=== PATIENT | female | born 1970 | race Caucasian/White ===

== ENCOUNTER 2025-07-21 11:44 | Emergency (ER) | payer MEDICAID ==
[~2025-07-21] VITALS: Ht 165.1 cm; Wt 94.0 kg
[2025-07-21 12:33] LABS: BLOOD/HGB, URINE NEGATIVE (Negative); KETONE, URINE NEGATIVE (Negative); LEUK ESTERASE, URINE TRACE (negative); NITRITE, URINE NEGATIVE (negative)
[2025-07-21 12:43] LABS: BASOPHILS 1.0 % (0.1-1.2); EOSINOPHILS 1.2 % (0.7-5.8); LYMPHOCYTES 33.8 % (19.3-51.7); MCH 29.8 PG (25.6-32.2); MCHC 34.1 g/dL (32.2-35.5); MCV 87.4 fL (79.4-94.8); MONOCYTES 4.6 % (4.7-12.5); NEUTROPHILS 59.2 % (34.0-71.1); RBC 5.16 M/uL (3.93-5.22)
[2025-07-21 12:44] LABS: BACTERIA, URINE NONE SEEN /hpf (negative); CASTS, URINE NONE SEEN \\lpf; CRYSTALS, URINE NONE SEEN (0-1+); EPITHELIAL CELLS, URINE SQUAMOUS 4+ /lpf (0-1+); REFLEX CULTURE, URINE No (No)
[2025-07-21 12:50] LABS: ALT (SGPT) 22.0 U/L (14-59); AST (SGOT) 33.0 U/L (15-37); GLOMERULAR FILTRATION RATE,EST 82.0 mL/min (>60); PROTEIN, TOTAL 8.1 g/dL (6.4-8.2); UREA NITROGEN 9.0 mg/dL (7-18)
[2025-07-21] MEDS ORDERED: MACROBID 100 M100 MG PO (14:03)
[2025-07-21 14:10] VITALS: BP 160/101
== END 2025-07-21 14:11 | disposition home or self-care (01) ==
LOC: ED 11:44
PROVIDERS: Emergency Medicine
DX: K43.9 Ventral hernia without obstruction or gangrene (principal); N39.0 Urinary tract infection, site not specified; R91.1 Solitary pulmonary nodule; N20.0 Calculus of kidney; Z88.0 Allergy status to penicillin; Z91.040 Latex allergy status
CPT/HCPCS: 36415; 74177; 80053; 81001; 83605; 83690; 85025; 99284-25; Q9967